=== PATIENT | female | born 1965 | race Caucasian/White ===

== ENCOUNTER → 2021-09-07 | Outpatient (CLI) | payer OTHER ==
--- NOTE | 2021-09-08 01:04 | CT ---
EXAMINATION TYPE: CT abdomen pelvis w con DATE OF EXAM: 09/07/2021 COMPARISON: CT dated 2016 HISTORY: Incisional hernia CT DLP: 2507.90 mGycm Automated exposure control for dose reduction was used. TECHNIQUE: Helical acquisition of images was performed from the lung bases through the pelvis. CONTRAST: Performed with Oral Contrast and with IV Contrast, patient injected with 100 mL of Isovue 300. FINDINGS: Large anterior abdominal wall midline hernia. The hernial sac measures 7.8 x 16.6 x 20.7 cm. The jose ial neck measures 6.9 x 5.5 cm. The hernia contains fat and demonstrates multiple compartments and se ptation. Portion of the mid transverse colon is seen protruding into the neck of the hernia. Scar tis mane is seen along the inferior aspect of the hernia in the midline. This hernia definitely progressed in size compared to the previous CT scan. No other definite anterior abdominal wall hernia identifie d. No definite hepatic focal lesion. Previous cholecystectomy. Unremarkable spleen, pancreas and adrenal s. Millimetric right renal hypodensities, too small to characterize and could represent renal cysts. 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 Grossly unremarkable urinary bladder. No gross uterine or adnexal mass. Minimal arterial atherosclerotic calcifications. Stable paraesophageal tiny lymph node. Unremarkable stomach, duodenum and small bowel. Unremarkable remainder of the colon. Normal appendix. No suspicious lymphadenopathy or sizable ascites. Apparent cardiomegaly. Stable millimetric calcifie d granuloma at the medial aspect of the right lung base. Degenerative changes of the lower thoracic a nd lumbar spine most evident at L4-5 level. Anterolisthesis of L4 over L5, likely degenerative. No ag gressive bone lesion. IMPRESSION: Large multicompartment anterior abdominal wall hernia as detailed above, for surgery consultation. Ot her incidental findings as described above.
== END | disposition home or self-care (01) ==
LOC: RADCTMAIN 12:52
PROVIDERS: ATTEND Surgery
DX: K43.2 Incisional hernia without obstruction or gangrene (principal)
CPT/HCPCS: 74177; Q9967

== ENCOUNTER → 2022-08-21 | Outpatient (CLI) | payer OTHER ==
--- NOTE | 2022-08-21 13:33 | US ---
EXAMINATION TYPE: US thyroid st tissue head/neck DATE OF EXAM: 08/21/2022 COMPARISON: NONE CLINICAL HISTORY: E03.9 HYPOTHYROIDISM. GLAND SIZE: Right Lobe: 3.5 x 1.9 x 1.5 cm Overall Parenchyma: lobular, heterogeneous Left Lobe: cm Overall Parenchyma: Isthmus Thickness: cm NODULES RIGHT: # of nodules measured on right: 1 1. 1.1 X 0.7 x 0.9 cm, mid , solid or almost completely solid, hypoechoic nodule, which is wider th an tall, with smooth margins, without echogenic foci. TR 4. Prior size: no previous imaging LEFT: # of nodules measured on left: 0 ISTHMUS: # of nodules measured in the isthmus: 1 1. 0.5 X 0.5 x 0.3 cm solid or almost completely solid, hyperechoic nodule, which is wider than summer l, with smooth margins, without echogenic foci. TR 3. Prior size: no previous imaging Bilateral neck scanned, no evidence of lymphadenopathy. IMPRESSION: 1. Right thyroid lobe TR 4-1.1 cm nodule. Follow-up ultrasound in one year is recommended. 2. Isthmus 0.5 cm TR 3 nodule. No follow-up or fine needle aspiration recommended.
== END | disposition home or self-care (01) ==
LOC: RADUSWWP 12:43
PROVIDERS: ATTEND Family Medicine
DX: E04.2 Nontoxic multinodular goiter (principal); E03.9 Hypothyroidism, unspecified
CPT/HCPCS: 76536

== ENCOUNTER → 2022-12-27 | Outpatient (CLI) | payer OTHER ==
[2022-12-27 15:36] VITALS: BP 143/75; PULSE 86; RESP 13; TEMP 98; BMI 59.0
--- NOTE | 2022-12-27 16:25 | P.HPBAR ---
Bariatric H&P - History & Physicial H&P Date: 12/27/22 History & Physicial: Visit/CC: new pt Patient initial contact: Initial weight: Initial weight in pounds: Height: 5 ft 3.5 in Initial BMI: Last weight: Current weight: 153.586 kg Current weight in pounds: 338.60 Current BMI: 59.0 [place] body weight (based on NIH guidelines): 53.297 kg Excess body weight loss: The patient is a 57 year-old F who presents for Bariatric Assessment. Plan for sleeve. Has large hernia. Needs cardiac assessment. Food and exercise journal. Nutritional assessment. Past Medical History Past Medical History: COPD, Hypertension, Thyroid Disorder History of Any Multi-Drug Resistant Organisms: None Reported Past Surgical History: Cholecystectomy, Tubal Ligation Additional Past Surgical History / Comment(s): hernia repair x 2 abdomen, Past Anesthesia/Blood Transfusion Reactions: No Reported Reaction Past Psychological History: Anxiety, Depression Smoking Status: Former smoker Past Alcohol Use History: None Reported Past Drug Use History: None Reported - Past Family History Father Family Medical History: Cancer Additional Family Medical History / Comment(s): gall bladder Mother Family Medical History: Congestive Heart Failure (CHF), COPD Surgical - Exam Vital Signs Temp Pulse Resp BP 98 F 86 13 143/75 12/27/22 15:18 12/27/22 15:18 12/27/22 15:18 12/27/22 15:18 Bariatric Checklist Checklist: Plan: Checklist: EGD: 1. Hiatal hernia: 2. H. Pylori: HgbA1c: Vitamin D: Smoking: Primary care physician referral: Psychiatry clearance: Cardiology clearance: Sleep study: Diet journal: VTE risk score: VTE risk level: Rehab needs at discharge:
== END ==
LOC: BARWHC3 14:53
PROVIDERS: ATTEND Surgery Plastic and Reconstructive Surgery
DX: E66.01 Morbid (severe) obesity due to excess calories (principal); J44.9 Chronic obstructive pulmonary disease, unspecified; I10 Essential (primary) hypertension; Z68.43 Body mass index [BMI] 50.0-59.9, adult; Z87.891 Personal history of nicotine dependence; Z88.5 Allergy status to narcotic agent
CPT/HCPCS: 99202

== ENCOUNTER → 2023-01-03 | Outpatient (CLI) | payer OTHER ==
[2023-01-03 12:54] LABS: INR 0.9 (<1.2); Partial Thromboplastin Time 24.2 sec (22.0-30.0); Prothrombin Time 10.1 sec (9.0-12.0)
[2023-01-03 15:29] LABS: Prealbumin 17.4 mg/dL (18.0-42.0)
[2023-01-03 17:01] LABS: % Iron Saturation 19.26 (12.00-45.00); ALT 18 U/L (8-44); AST 17 U/L (13-35); Albumin 4.1 d/dL (3.8-4.9); Albumin/Globulin Ratio 1.37 Ratio (1.60-3.17); Alkaline Phosphatase 138 U/L (41-126); Blood Urea Nitrogen 14.8 mg/dL (9.0-27.0); Calcium 9.6 mg/dL (8.7-10.3); Carbon Dioxide 23.2 mmol/L (21.6-31.8); Chloride 100 mmol/L (96-109); Chol/HDL Ratio 3.52 Ratio; Glucose 98 mg/dL (70-110); Iron 68 UG/DL (50-170); LDL Cholesterol,Calculated 96.6 mg/dL (0.0-131.0); Magnesium 2.1 mg/dL (1.5-2.4); Phosphorus 2.8 mg/dL (2.4-5.1); Potassium 3.9 mmol/L (3.5-5.5); Sodium 145 mmol/L (135-145); Total Bilirubin 0.2 mg/dL (0.3-1.2); Total Iron Binding Capacity 353 UG/DL (228-460); Total Protein 7.1 d/dL (6.2-8.2)
[2023-01-03 17:04] LABS: HCT 46.7 % (37.2-46.3); HGB 14.1 d/dL (12.0-15.0); MCH 31.1 pg (27.0-32.0); MCHC 30.2 d/dL (32.0-37.0); MCV 102.9 FL (80.0-97.0); Mean Platelet Volume 10.5 FL (9.5-12.2); NRBC Per 100 WBC 0 X 10*3/uL (0.00-0.01); Platelet Count 305 X 10*3/uL (140-440); RBC 4.54 X 10*6/uL (4.10-5.20); RDW 14.3 % (11.5-14.5); WBC 9.47 X 10*3/uL (4.50-10.00)
[2023-01-05 07:08] LABS: Vit B1(Thiamine) 95 ug/L (38-122)
[2023-01-08 06:28] LABS: Anabasine Urine <2.0 ng/mL (<2.0)
[2023-01-08 08:41] LABS: Vitamin A 29 ug/dL (38-106)
[2023-01-10 09:53] LABS: Zinc, Serum 66 ug/dL (60-130)
[2023-01-12 18:54] LABS: Selenium 123 mcg/L (63-160)
== END | disposition home or self-care (01) ==
LOC: LABWHC1 11:12
PROVIDERS: ATTEND Surgery Plastic and Reconstructive Surgery
DX: E66.01 Morbid (severe) obesity due to excess calories (principal); E89.1 Postprocedural hypoinsulinemia; D50.8 Other iron deficiency anemias; K91.2 Postsurgical malabsorption, not elsewhere classified; E44.0 Moderate protein-calorie malnutrition; E44.1 Mild protein-calorie malnutrition; E45 Retarded development following protein-calorie malnutrition; E46 Unspecified protein-calorie malnutrition; E55.9 Vitamin D deficiency, unspecified; K74.1 Hepatic sclerosis; N19 Unspecified kidney failure; T56.894A Toxic effect of other metals, undetermined, initial encounter; K50.90 Crohn's disease, unspecified, without complications; Z71.51 Drug abuse counseling and surveillance of drug abuser; I45.19 Other right bundle-branch block; R94.31 Abnormal electrocardiogram [ECG] [EKG]
CPT/HCPCS: 84255; 84134; 84425; 80061; 80053; 82607; 82728; 82525; 82746; 83540; 83550; 83735; 84100; 84443; 84590; 84630; 85027; 85610; 85730; 82306; 80307; 83970; 83036; 93005; G0480 ×3; 80323; 80345; 80346

== ENCOUNTER 2023-02-05 07:01 | Day surgery (SDC) | payer OTHER ==
[2023-02-01 12:53] VITALS: BMI 53.2
[~2023-02-05 07:01] MED LIST: LACTATED RINGERS 1,000 ML IV SCH; LIDOCAINE 1% (10MG/ML) FOR IV START INTRADERMA PRN
[2023-02-05 07:28] VITALS: TEMP 97.4
[2023-02-05] MEDS ORDERED: MIDAZOLAM 2 MG/2 ML VIAL ONE (08:02)
[2023-02-05] MEDS ORDERED: PROPOFOL 10 MG/ML 20 ML VIAL IV ONE (08:02)
[2023-02-05] MEDS ORDERED: KETAMINE 10 MG/ML 20 ML VIAL ONE (08:02)
[2023-02-05 08:27] VITALS: RESP 16
--- NOTE | 2023-02-05 08:36 | P.GSHP ---
History of Present Illness H&P Date: 02/05/23 CHIEF COMPLAINT: GERD HISTORY OF PRESENT ILLNESS: The patient is a 57-year-old female who presents reports gastroesophageal reflux disease. Upper endoscopy was offered for further evaluation and management. PAST MEDICAL HISTORY: Please see list. PAST SURGICAL HISTORY: Please see list. MEDICATIONS: Please see list. ALLERGIES: Please see list. SOCIAL HISTORY: No illicit drug use FAMILY HISTORY: No reports of Crohn disease or ulcerative colitis. REVIEW OF ORGAN SYSTEMS: CONSTITUTIONAL: No reports of fevers or chills. GI: Denies any blood in stools or constipation. PHYSICAL EXAM: VITAL SIGNS: Stable GENERAL: Well-developed and pleasant in no acute distress. HEENT: No scleral icterus. Extraocular movements grossly intact. Moist buccal mucosa. NECK: Supple without lymphadenopathy. CHEST: Unlabored respirations. Equal bilateral excursions. CARDIOVASCULAR: Regular rate and rhythm. Distal 2+ pulses. ABDOMEN: Soft, nondistended. MUSCULOSKELETAL: No clubbing, cyanosis, or edema. ASSESSMENT: 1. Gastroesophageal reflux disease PLAN: 1. Recommend proceeding with an upper endoscopy Past Medical History Past Medical History: COPD, Hypertension, Osteoarthritis (OA), Skin Disorder, Thyroid Disorder Additional Past Medical History / Comment(s): hernia History of Any Multi-Drug Resistant Organisms: None Reported Past Surgical History: Cholecystectomy, Tubal Ligation Additional Past Surgical History / Comment(s): hernia repair x 2 abdomen, Past Anesthesia/Blood Transfusion Reactions: No Reported Reaction Past Psychological History: Anxiety, Depression Smoking Status: Former smoker Past Alcohol Use History: None Reported Additional Past Alcohol Use History / Comment(s): quit smoking 2 yrs ago (apr 2021), hx of 1ppd, started smoking age 22 Past Drug Use History: None Reported - Past Family History Father Family Medical History: Cancer Additional Family Medical History / Comment(s): gall bladder cancer Mother Family Medical History: Congestive Heart Failure (CHF), COPD Medications and Allergies Home Medications Medication Instructions Recorded Confirmed Type Atorvastatin [Lipitor] 20 mg PO DAILY 12/27/22 02/05/23 History Cyclobenzaprine [Flexeril] 10 mg PO BID PRN 12/27/22 02/05/23 History Folic Acid 1 mg PO DAILY 12/27/22 02/05/23 History Ibuprofen [Motrin] 800 mg PO Q8H 12/27/22 02/05/23 History Levothyroxine Sodium [Synthroid] 75 mcg PO DAILY 12/27/22 02/05/23 History Verapamil HCl [Verapamil ER] 120 mg PO DAILY 12/27/22 02/05/23 History busPIRone HCL 10 mg PO DIRECTED PRN 12/27/22 02/05/23 History lisinopriL [Prinivil] 20 mg PO DAILY 12/27/22 02/05/23 History metHOTREXate sodium [Methotrexate] 12.5 mg PO MARTINEZ 12/27/22 02/05/23 History Albuterol Nebulizer 1 dose INHALATION BID 02/01/23 02/05/23 History Budesonide-Formot 160-4.5 Mcg 2 puff INHALATION BID 02/01/23 02/05/23 History [Symbicort 160-4.5 Mcg Inhaler] Cholecalciferol [Vitamin D3 (25 100 mcg PO DAILY 02/01/23 02/05/23 History Mcg = 1000 Iu)] Cyanocobalamin (Vitamin B-12) 1,000 mcg PO DAILY 02/01/23 02/05/23 History [Vitamin B-12] Sertraline [Zoloft] 200 mg PO DAILY 02/01/23 02/05/23 History Allergies Allergy/AdvReac Type Severity Reaction Status Date / Time hydromorphone [From Dilaudid] Allergy Vomiting Verified 02/05/23 07:28 Surgical - Exam Vital Signs Temp Pulse Resp BP Pulse Ox 97.4 F L 96 20 220/106 96 02/05/23 07:26 02/05/23 07:26 02/05/23 07:26 02/05/23 07:26 02/05/23 07:26
--- NOTE | 2023-02-05 08:38 | P.PCN ---
Date of Procedure: 02/05/23 Description of Procedure: PREOPERATIVE DIAGNOSIS: Gastroesophageal reflux disease. Morbid obesity. POSTOPERATIVE DIAGNOSIS: Gastroesophageal reflux disease. Morbid obesity. Gastritis. Duodenitis OPERATION: Esophagogastroduodenoscopy with biopsies along antrum and duodenum SURGEON: Bren Hawthorne MD ANESTHESIA: MAC. INDICATIONS: The patient is a 57-year-old female who presents with reflux disease. Benefits and risks of the procedure were described. Informed consent was obtained. DESCRIPTION: The patient was brought into the endoscopy suite and laid in the left lateral decubitus position. An Olympus gastroscope was passed along the posterior oropharynx down to the distal esophagus where the squamocolumnar junction was encountered at 40 cm from the incisors. The stomach was entered and no bile reflux was found. Additional findings are listed below. Biopsies with cold forceps were obtained of the antrum. The first through third portion of the duodenum was examined. Retroflexion of the scope confirmed Hill grade 3 lower esophageal valve. The squamocolumnar junction demonstrated LA grade B erosive esophagitis. The stomach was desufflated. The patient tolerated the procedure well. FINDINGS: Squamocolumnar junction 40 cm from the incisors. Diaphragmatic hiatus at 40 cm. Hill grade 4 lower esophageal valve. LA grade B erosive esophagitis. Biopsies obtained of the duodenum. Chronic gastritis with biopsies obtained. Duodenitis identified. RECOMMENDATIONS: Upper endoscopy as needed. Plan - Discharge Summary New Discharge Prescriptions: Continue Cyclobenzaprine [Flexeril] 10 mg PO BID PRN PRN Reason: Pain busPIRone HCL 10 mg PO DIRECTED PRN PRN Reason: Anxiety lisinopriL [Prinivil] 20 mg PO DAILY Verapamil HCl [Verapamil ER] 120 mg PO DAILY Folic Acid 1 mg PO DAILY Sertraline [Zoloft] 200 mg PO DAILY Cholecalciferol [Vitamin D3 (25 Mcg = 1000 Iu)] 100 mcg PO DAILY Albuterol Nebulizer 1 dose INHALATION BID Levothyroxine Sodium [Synthroid] 75 mcg PO DAILY metHOTREXate sodium [Methotrexate] 12.5 mg PO MARTINEZ Ibuprofen [Motrin] 800 mg PO Q8H Atorvastatin [Lipitor] 20 mg PO DAILY Budesonide-Formot 160-4.5 Mcg [Symbicort 160-4.5 Mcg Inhaler] 2 puff INHALATION BID Cyanocobalamin (Vitamin B-12) [Vitamin B-12] 1,000 mcg PO DAILY Discharge Medication List Atorvastatin [Lipitor] 20 mg PO DAILY 12/27/22 [History] Cyclobenzaprine [Flexeril] 10 mg PO BID PRN 12/27/22 [History] Folic Acid 1 mg PO DAILY 12/27/22 [History] Ibuprofen [Motrin] 800 mg PO Q8H 12/27/22 [History] Levothyroxine Sodium [Synthroid] 75 mcg PO DAILY 12/27/22 [History] Verapamil HCl [Verapamil ER] 120 mg PO DAILY 12/27/22 [History] busPIRone HCL 10 mg PO DIRECTED PRN 12/27/22 [History] lisinopriL [Prinivil] 20 mg PO DAILY 12/27/22 [History] metHOTREXate sodium [Methotrexate] 12.5 mg PO MARTINEZ 12/27/22 [History] Albuterol Nebulizer 1 dose INHALATION BID 02/01/23 [History] Budesonide-Formot 160-4.5 Mcg [Symbicort 160-4.5 Mcg Inhaler] 2 puff INHALATION BID 02/01/23 [History] Cholecalciferol [Vitamin D3 (25 Mcg = 1000 Iu)] 100 mcg PO DAILY 02/01/23 [History] Cyanocobalamin (Vitamin B-12) [Vitamin B-12] 1,000 mcg PO DAILY 02/01/23 [History] Sertraline [Zoloft] 200 mg PO DAILY 02/01/23 [History] [place] [facility]Ref[place] [facility] [place] [place] [facility] [place] [facility]23 Patient Instructions/Handouts: Gastritis (DC) Discharge Disposition: HOME SELF-CARE
[2023-02-05 08:48] VITALS: BP 158/88; PULSE 72
== END 2023-02-05 09:03 | disposition home or self-care (01) ==
LOC: ORWHC2ENDO 07:01
PROVIDERS: ATTEND Surgery Plastic and Reconstructive Surgery
DX: K29.90 Gastroduodenitis, unspecified, without bleeding (principal); K21.00 Gastro-esophageal reflux disease with esophagitis, without bleeding; K44.9 Diaphragmatic hernia without obstruction or gangrene; J44.9 Chronic obstructive pulmonary disease, unspecified; I10 Essential (primary) hypertension; M19.90 Unspecified osteoarthritis, unspecified site; E07.9 Disorder of thyroid, unspecified; Z90.49 Acquired absence of other specified parts of digestive tract; F41.9 Anxiety disorder, unspecified; E66.01 Morbid (severe) obesity due to excess calories; Z68.43 Body mass index [BMI] 50.0-59.9, adult; F32.A Depression, unspecified; Z87.891 Personal history of nicotine dependence; Z79.890 Hormone replacement therapy; Z79.899 Other long term (current) drug therapy; Z79.51 Long term (current) use of inhaled steroids; Z88.5 Allergy status to narcotic agent
CPT/HCPCS: 88305; 43239; J2250; J2704

== ENCOUNTER → 2023-03-07 | Outpatient (CLI) | payer OTHER ==
[2023-03-07 13:29] VITALS: BP 179/94; PULSE 102; TEMP 98.2; BMI 58.9
--- NOTE | 2023-03-07 14:21 | P.BASOAP ---
Subjective Progress Note Date: 03/07/23 She avoids salt. Options for protein. Blod work support need for more protein. She only eats chicken but note needs more protein. EKG reviewed. Labs reviewed. Objective - Vital Signs Vital signs: Vital Signs Temp 98.2 F 03/07/23 13:24 Pulse 102 H 03/07/23 13:24 Resp BP 179/94 03/07/23 13:24 Pulse Ox FiO2 Intake & Output 03/06/23 03/07/23 03/07/23 18:59 06:59 18:59 Weight 153.314 kg Assessment/Plan Plan: Date: 03/07/23 Initial Weight: Initial BMI: Current Weight: 153.314 kg Current BMI: 58.9 Type of Surgery: Total Volume in Band: Previous Volume: Volume Removed: Volume Added: Band Size:
== END ==
LOC: BARWHC3 13:18
PROVIDERS: ATTEND Surgery Plastic and Reconstructive Surgery
DX: Z53.9 Procedure and treatment not carried out, unspecified reason (principal)
CPT/HCPCS: 99211

== ENCOUNTER → 2023-04-09 | Outpatient (CLI) | payer OTHER ==
[2023-04-09 09:32] VITALS: BMI 59.7
== END ==
LOC: BARWHC3 08:42
PROVIDERS: ATTEND Surgery Plastic and Reconstructive Surgery
DX: E66.01 Morbid (severe) obesity due to excess calories (principal); Z68.43 Body mass index [BMI] 50.0-59.9, adult; Z88.5 Allergy status to narcotic agent; Z71.3 Dietary counseling and surveillance
CPT/HCPCS: 97804

== ENCOUNTER → 2023-05-30 | Outpatient (CLI) | payer OTHER ==
[~2023-05-30] MED LIST changes: +DOBUTamine DRIP for NUC MED 500 MG in DEXTROSE/WATER 1 250ML.BAG IV PRN; -LACTATED RINGERS 1,000 ML IV SCH; -LIDOCAINE 1% (10MG/ML) FOR IV START INTRADERMA PRN
--- NOTE | 2023-05-30 12:04 | CA ---
Dobutamine Stress Echocardiogram Report Amelia Bonilla Age: 58 Gender: F : 1965 Exam Date: 05/30/2023 10:38 Exam Location: [place] Stress Ordering Physician: Don Whitehead MD ([id number]) Referring Physician: Don Whitehead MD ([id number]) Audio Visual Facilities Engineer: Fatemeh ESPINAL Technologist: Ht (in): 66 Wt (lb): 340 Procedure CPT: Indication: Z01.818 PREPROCEDURAL EXAMINATION ICD-9 Codes: Rhythm: Patient History: Cardiac Medications: Medications in past 24 hours: Contrast: Definity Total Dose (mL): 10 Stress Results Protocol: Dobutamine Peak Dose (???g/kg/min): 40 Duration (min:sec): Atropine:(mg) Target HR: 139 Double Product: [id number] Resting HR: 82 Resting BP: 122 / 80 Peak HR: 134 Peak BP: 247 / 35 Max Predicted HR: 164 82 % Max Predicted HR Stress Summary: BP Response: Reason for Termination: Exceeded target heart rate (85% max predicted) Cardiac Symptoms: Test terminated after reaching target heart rate (85% max predicted) ECG Analysis Resting EKG: Normal sinus rhythm, normal ECG Stress EKG: No abnormal ST/T wave changes with dobutamine infusion Arrhythmia: None Echo Analysis Base Echo Analysis: Normal resting echocardiogram. Low Echo Anaylsis: Normal wall thickening and motion Peak Echo Analysis: Normal wall motion augmentation with no hypokinesis or dyskinesis Recovery Echo: Normal wall motion MEASUREMENTS (Male/Female) Normal Values CONCLUSIONS 1. Normal electrocardiographic response to dobutamine infusion 2. Normal stress echocardiogram with no evidence of stress induced ischemia Dr. Mark Leon MD (Electronically Signed) Final Date: 30 May 2023 12:03
== END | disposition home or self-care (01) ==
LOC: RADNMMAIN 09:45
PROVIDERS: ATTEND Internal Medicine Clinical Cardiac Electrophysiology
DX: Z01.818 Encounter for other preprocedural examination (principal)
CPT/HCPCS: C8930; Q9957; 93351

== ENCOUNTER → 2023-06-27 | Outpatient (CLI) | payer OTHER ==
[2023-06-27 16:38] VITALS: BP 149/89; PULSE 87; TEMP 97.7; BMI 58.8
--- NOTE | 2023-06-27 17:06 | P.BASOAP ---
Subjective Progress Note Date: 06/27/23 DATE OF SERVICE: 06/27/23 CHIEF COMPLAINT: Morbid obesity due to excess calories HISTORY OF PRESENT ILLNESS: Amelia Bonilla is a 58-year-old female who comes with lifelong morbid obesity. She comes in looking into the sleeve gastrectomy. She has pre-existing history of large ventral hernia. She comes in morbidly obese. She has had multiple abdominal wall surgeries with mesh all of whom have failed. She has completed cardiac risk assessment, medical risks assessment and dietary surveillance and counseling. She presents for surgical intervention. At height of 5 feet 3.5 inches, her ideal body weight is 140 pounds. She comes in 338 pounds. Her body mass index is 58.9. Her highest weight is 340 pounds, BMI 59.5. She is 198 pounds overweight. PAST MEDICAL HISTORY: 1. Morbid obesity due to excess calories 2. Body mass index of 59.5 3. Osteoarthritis of the knees. 4. Osteoarthritis of the lower back. 5. Hypertensive heart disease. 6. Gastroesophageal reflux disease 7. Hyperlipidemia 8. Obstructive sleep apnea 9. Hypothyroidism. 10. Rheumatoid arthritis 11. Depressive disorder. 12. Chronic obstructive pulmonary disease. 13. Anxiety disorder 14. Depressive disorder PAST SURGICAL HISTORY: 1. Multiple abdominal wall hernias 2. EGD 3. Cholecystectomy 4. Tubal ligation HOME MEDICATIONS: Home Medications Medication Instructions Recorded Confirmed Atorvastatin [Lipitor] 20 mg PO QAM 12/27/22 06/27/23 Cyclobenzaprine [Flexeril] 10 mg PO BID PRN 12/27/22 06/27/23 Ibuprofen [Motrin] 800 mg PO Q8H PRN 12/27/22 06/27/23 Levothyroxine Sodium [Synthroid] 75 mcg PO QAM 12/27/22 06/27/23 busPIRone HCL 10 mg PO DIRECTED PRN 12/27/22 06/27/23 lisinopriL [Prinivil] 20 mg PO QAM 12/27/22 06/27/23 metHOTREXate sodium 12.5 mg PO MARTINEZ 12/27/22 06/27/23 Budesonide-Formot 160-4.5 Mcg 2 puff INHALATION BID 02/01/23 06/27/23 [Symbicort 160-4.5 Mcg Inhaler] Sertraline [Zoloft] 200 mg PO QAM 02/01/23 06/27/23 Verapamil HCl [Verapamil ER] 180 mg PO QAM 06/27/23 06/27/23 ALLERGIES: Allergies Allergy/AdvReac Type Severity Reaction Status Date / Time hydromorphone [From Dilaudid] Allergy Vomiting Verified 06/27/23 14:20 SOCIAL HISTORY: Past tobacco use. FAMILY HISTORY: No family history of ulcerative colitis disease or Crohn's disease. Family history of morbid obesity. No lupus in the family. No reports of stomach or esophageal cancer. REVIEW OF ORGAN SYSTEMS: CONSTITUTIONAL: At height of 5 feet 3.5 inches, her ideal body weight is 140 pounds. She comes in 338 pounds. Her body mass index is 58.9. Her highest weight is 340 pounds, BMI 59.5. She is 198 pounds overweight. HEENT: Denies any active troubles with vision or hearing. ENDOCRINE: Denies diabetes. No hypothyroidism. CARDIOVASCULAR: Denies reports of palpitations or heart attacks or chest pain. Has hypertensive heart disease. RESPIRATORY: Has daytime somnolence. Has asthma. Has chronic obstructive pulmonary disease. GASTROINTESTINAL: Denies any bright red blood per rectum. No diarrhea. No constipation. Has gastroesophageal reflux disease. GENITOURINARY:Denies bladder urgency. No recent blood in urine MUSCULOSKELETAL: Has lower back pain and joint pain. Has osteoarthritis of the knees. NEURO: No headaches. No seizure disorders. Has neuropathy. PSYCH: Has depression. No suicidal ideation. RHEUMATOLOGIC: No lupus. No rheumatoid arthritis. HEMATOLOGIC: Denies any abnormal bleeding or bruising. SKIN: No rash. No skin cancer. Multiple abdominal hernia PHYSICAL EXAM: VITAL SIGNS: Height 5 foot 3.5 inches, weight 338 pounds. BMI 58.9 Vital Signs Temp 97.7 F 06/27/23 16:19 Pulse 87 06/27/23 16:19 Resp BP 149/89 06/27/23 16:19 Pulse Ox FiO2 GENERAL: Well-developed in no acute distress. HEENT: No scleral icterus. Extraocular movements grossly intact. Hears conversational speech. No nasal drainage. NECK: Supple without lymphadenopathy. CHEST: Nonlabored respirations with equal bilateral excursions. CARDIOVASCULAR: Regular rate and regular rhythm. Distal 2+ pulses. ABDOMEN: Obese, soft, nontender, nondistended. Large pannus with multiple abdominal wall hernias MUSCULOSKELETAL: No clubbing, cyanosis. Gross strength 5/5 distal lower ex tremities. NEURO: No focal or lateralizing signs. Cranial nerves 2 through 12 grossly within normal limits. PSYCH: Appropriate affect. Alert and oriented to person, place and time. SKIN: Good skin turgor. Well perfused. EKG: Abnormal with ST and T-wave abnormality LABS: Vitamin A low. Elevated barbital level on urine drug screen. EGD FINDINGS: Squamocolumnar junction 40 cm from the incisors. Diaphragmatic hiatus at 40 cm. Hill grade 4 lower esophageal valve. LA grade B erosive esophagitis. Biopsies obtained of the duodenum. Chronic gastritis with biopsies obtained. Duodenitis identified. REPORTS: Manager Floral report demonstrated acceptable surgical risk. Final Pathologic Diagnosis A. DUODENUM, BIOPSY: Benign small bowel mucosa with superficial congestion and focal erosion. Negative for histologic features of Celiac disease. B. STOMACH, ANTRUM, BIOPSY: Reactive gastropathy with congestion and minimal inflammation. No Helicobacter organisms seen on H+E staining. ASSESSMENT: 1. Morbid obesity due to excess calories 2. Body mass index of 59.5 3. Osteoarthritis of the knees. 4. Osteoarthritis of the lower back. 5. Hypertensive heart disease. 6. Gastroesophageal reflux disease 7. Hyperlipidemia 8. Obstructive sleep apnea 9. Hypothyroidism. 10. Rheumatoid arthritis 11. Depressive disorder. 12. Chronic obstructive pulmonary disease. 13. Anxiety disorder 14. Depressive disorder 15. Recurrent incisional hernia 16. Vitamin A deficiency PLAN: 1. Bariatric options between a sleeve, band and a Yared-en-Y gastric bypass were reviewed in detail. The patient elected for a sleeve gastrectomy. Robotic assisted approach described. 2. The [place] [facility] Data was also reviewed with benefits and risks performed. 3. An 8 page second-generation bariatric consent form was reviewed in detail including potential of bleeding, infection, leaks, adequate weight loss, nutritional deficiencies which the patient demonstrated understanding of the risks. 4. A 2 week high-protein low caloric 800 kcal diet described to address hepatomegaly. 5. Preoperative labs including complete metabolic panel and CBC with type and screen recommended. 6. DVT prophylaxis per [place] [facility]. 7. Antibiotic prophylaxis. 8. Inpatient hospitalization anticipated for more than 2 nights. 9. All questions and concerns were addressed with the patient. 10. The patient is at elevated risk for perioperative complications with sleep apnea and hypertensive heart disease. 11. Overall, patient has expressed understanding of bariatric care including postoperative diet and commitment of lifestyle. Patient should benefit from surgical intervention for correction of morbid obesity. 12. She is elevated risk due to pre-existing comorbid conditions 13. She has large ventral hernia. May benefit from abdominal wall reconstruction following weight. Objective - Vital Signs Vital signs: Vital Signs Temp 97.7 F 06/27/23 16:19 Pulse 87 06/27/23 16:19 Resp BP 149/89 06/27/23 16:19 Pulse Ox FiO2 Intake & Output 06/26/23 06/27/23 06/27/23 18:59 06:59 18:59 Weight 153.178 kg Assessment/Plan Plan: Date: 06/27/23 Initial Weight: Initial BMI: Current Weight: 153.178 kg Current BMI: 58.8 Type of Surgery: Total Volume in Band: Previous Volume: Volume Removed: Volume Added: Band Size:
== END ==
LOC: BARWHC3 15:35
PROVIDERS: ATTEND Surgery Plastic and Reconstructive Surgery
DX: E66.01 Morbid (severe) obesity due to excess calories (principal); M17.0 Bilateral primary osteoarthritis of knee; M47.816 Spondylosis without myelopathy or radiculopathy, lumbar region; I11.0 Hypertensive heart disease with heart failure; K21.9 Gastro-esophageal reflux disease without esophagitis; E78.5 Hyperlipidemia, unspecified; G47.33 Obstructive sleep apnea (adult) (pediatric); E03.9 Hypothyroidism, unspecified; M06.9 Rheumatoid arthritis, unspecified; F32.A Depression, unspecified; J44.9 Chronic obstructive pulmonary disease, unspecified; A41.9 Sepsis, unspecified organism; Z68.43 Body mass index [BMI] 50.0-59.9, adult; Z88.5 Allergy status to narcotic agent; Z79.899 Other long term (current) drug therapy; Z79.890 Hormone replacement therapy
CPT/HCPCS: 99211

== ENCOUNTER → 2023-06-28 | Outpatient (CLI) | payer OTHER ==
[2023-06-28 15:39] LABS: Basophils # (A) 0.03 X 10*3/uL (0.00-0.10); Basophils % (A) 0.4 %; Eosinophils # (A) 0.05 X 10*3/uL (0.04-0.35); Eosinophils % (A) 0.7 %; HCT 45.5 % (37.2-46.3); HGB 14.5 g/dL (12.0-15.0); Lymphocytes # (A) 2.61 X 10*3/uL (0.90-5.00); MCH 31.7 pg (27.0-32.0); MCHC 31.9 g/dL (32.0-37.0); MCV 99.3 FL (80.0-97.0); Mean Platelet Volume 10.3 FL (9.5-12.2); Monocytes # (A) 0.42 X 10*3/uL (0.20-1.00); Monocytes % (A) 5.8 %; NRBC Per 100 WBC 0 X 10*3/uL (0.00-0.01); Neutrophils # (A) 4.12 X 10*3/uL (1.80-7.70); Neutrophils % (A) 56.8 %; Platelet Count 273 X 10*3/uL (140-440); RBC 4.58 X 10*6/uL (4.10-5.20); RDW 14.1 % (11.5-14.5); WBC 7.25 X 10*3/uL (4.50-10.00)
[2023-06-28 16:06] LABS: ALT 24 U/L (8-44); AST 20 U/L (13-35); Albumin 4.2 g/dL (3.8-4.9); Albumin/Globulin Ratio 1.45 Ratio (1.60-3.17); Alkaline Phosphatase 110 U/L (41-126); BUN/Creat Ratio 16.12 Ratio (12.00-20.00); Blood Urea Nitrogen 12.9 mg/dL (9.0-27.0); Calcium 9.5 mg/dL (8.7-10.3); Carbon Dioxide 25.3 mmol/L (21.6-31.8); Chloride 107 mmol/L (96-109); Globulin 2.9 g/dL (1.6-3.3); Glucose 88 mg/dL (70-110); Potassium 4.2 mmol/L (3.5-5.5); Sodium 143 mmol/L (135-145); Total Bilirubin 0.3 mg/dL (0.3-1.2); Total Protein 7.1 g/dL (6.2-8.2)
== END | disposition home or self-care (01) ==
LOC: LABPAT 09:23
PROVIDERS: ATTEND Surgery Plastic and Reconstructive Surgery
DX: Z01.812 Encounter for preprocedural laboratory examination (principal)
CPT/HCPCS: 36415; 80053; 85025; 86850; 86900; 86901

== ENCOUNTER 2023-07-02 09:10 | Inpatient (IN) | payer OTHER ==
--- NOTE | 2023-07-02 08:06 | P.GSHP ---
History of Present Illness H&P Date: 07/02/23 CHIEF COMPLAINT: Morbid obesity due to excess calories HISTORY OF PRESENT ILLNESS: Amelia Bonilla is a 58-year-old female who comes with lifelong morbid obesity. She comes in looking into the sleeve gastrectomy. She has completed cardiac risk assessment, medical risks assessment and dietary surveillance and counseling. She presents for surgical intervention. At height of 5 feet 3.5 inches, her ideal body weight is 140 pounds. She comes in 338 pounds. Her body mass index is 58.9. Her highest weight is 342 pounds, BMI 59.8. She is 198 pounds overweight. PAST MEDICAL HISTORY: 1. Morbid obesity due to excess calories 2. Body mass index of 59.8 3. Osteoarthritis of the knees. 4. Osteoarthritis of the lower back. 5. Hypertensive heart disease. 6. Gastroesophageal reflux disease 7. Hyperlipidemia 8. Obstructive sleep apnea 9. Hypothyroidism. 10. Rheumatoid arthritis 11. Depressive disorder. 12. Chronic obstructive pulmonary disease. 13. Anxiety disorder 14. Depressive disorder PAST SURGICAL HISTORY: 1. Multiple abdominal wall hernias 2. EGD 3. Cholecystectomy 4. Tubal ligation HOME MEDICATIONS: Home Medications Medication Instructions Recorded Confirmed Atorvastatin [Lipitor] 20 mg PO QAM 12/27/22 06/27/23 Cyclobenzaprine [Flexeril] 10 mg PO BID PRN 12/27/22 06/27/23 Ibuprofen [Motrin] 800 mg PO Q8H PRN 12/27/22 06/27/23 Levothyroxine Sodium [Synthroid] 75 mcg PO QAM 12/27/22 06/27/23 busPIRone HCL 10 mg PO DIRECTED PRN 12/27/22 06/27/23 lisinopriL [Prinivil] 20 mg PO QAM 12/27/22 06/27/23 metHOTREXate sodium 12.5 mg PO MARTINEZ 12/27/22 06/27/23 Budesonide-Formot 160-4.5 Mcg 2 puff INHALATION BID 02/01/23 06/27/23 [Symbicort 160-4.5 Mcg Inhaler] Sertraline [Zoloft] 200 mg PO QAM 02/01/23 06/27/23 Verapamil HCl [Verapamil ER] 180 mg PO QAM 06/27/23 06/27/23 ALLERGIES: Allergies Allergy/AdvReac Type Severity Reaction Status Date / Time hydromorphone [From Dilaudid] Allergy Vomiting Verified 06/27/23 14:20 SOCIAL HISTORY: Past tobacco use. FAMILY HISTORY: No family history of ulcerative colitis disease or Crohn's disease. Family history of morbid obesity. No lupus in the family. No reports of stomach or esophageal cancer. REVIEW OF ORGAN SYSTEMS: CONSTITUTIONAL: At height of 5 feet 3.5 inches, her ideal body weight is 140 pounds. She comes in 338 pounds. Her body mass index is 58.9. Her highest weight is 340 pounds, BMI 59.5. She is 198 pounds overweight. HEENT: Denies any active troubles with vision or hearing. ENDOCRINE: Denies diabetes. No hypothyroidism. CARDIOVASCULAR: Denies reports of palpitations or heart attacks or chest pain. Has hypertensive heart disease. RESPIRATORY: Has daytime somnolence. Has asthma. Has chronic obstructive pulmonary disease. GASTROINTESTINAL: Denies any bright red blood per rectum. No diarrhea. No constipation. Has gastroesophageal reflux disease. GENITOURINARY:Denies bladder urgency. No recent blood in urine MUSCULOSKELETAL: Has lower back pain and joint pain. Has osteoarthritis of the knees. NEURO: No headaches. No seizure disorders. Has neuropathy. PSYCH: Has depression. No suicidal ideation. RHEUMATOLOGIC: No lupus. No rheumatoid arthritis. HEMATOLOGIC: Denies any abnormal bleeding or bruising. SKIN: No rash. No skin cancer. Multiple abdominal hernia PHYSICAL EXAM: VITAL SIGNS: Height 5 foot 3.5 inches, weight 338 pounds. BMI 58.9 GENERAL: Well-developed in no acute distress. HEENT: No scleral icterus. Extraocular movements grossly intact. Hears conversational speech. No nasal drainage. NECK: Supple without lymphadenopathy. CHEST: Nonlabored respirations with equal bilateral excursions. CARDIOVASCULAR: Regular rate and regular rhythm. Distal 2+ pulses. ABDOMEN: Obese, soft, nontender, nondistended. Large pannus with multiple abdominal wall hernias MUSCULOSKELETAL: No clubbing, cyanosis. Gross strength 5/5 distal lower extremities. NEURO: No focal or lateralizing signs. Cranial nerves 2 through 12 grossly within normal limits. PSYCH: Appropriate affect. Alert and oriented to person, place and time. SKIN: Good skin turgor. Well perfused. ASSESSMENT: 1. Morbid obesity due to excess calories 2. Body mass index of 59.5 3. Osteoarthritis of the knees. 4. Osteoarthritis of the lower back. 5. Hypertensive heart disease. 6. Gastroesophageal reflux disease 7. Hyperlipidemia 8. Obstructive sleep apnea 9. Hypothyroidism. 10. Rheumatoid arthritis 11. Depressive disorder. 12. Chronic obstructive pulmonary disease. 13. Anxiety disorder 14. Depressive disorder 15. Recurrent incisional hernia 16. Vitamin A deficiency PLAN: 1. Bariatric options between a sleeve, band and a Yared-en-Y gastric bypass were reviewed in detail. The patient elected for a sleeve gastrectomy. Robotic assisted approach described. 2. The [place] [facility] Data was also reviewed with benefits and risks performed. 3. An 8 page second-generation bariatric consent form was reviewed in detail including potential of bleeding, infection, leaks, adequate weight loss, nutritional deficiencies which the patient demonstrated understanding of the risks. 4. A 2 week high-protein low caloric 800 kcal diet described to address hepatomegaly. 5. Preoperative labs including complete metabolic panel and CBC with type and screen recommended. 6. DVT prophylaxis per [place] [facility]. 7. Antibiotic prophylaxis. 8. Inpatient hospitalization anticipated for more than 2 nights. 9. All questions and concerns were addressed with the patient. 10. The patient is at elevated risk for perioperative complications with sleep apnea and hypertensive heart disease. 11. Overall, patient has expressed understanding of bariatric care including postoperative diet and commitment of lifestyle. Patient should benefit from surgical intervention for correction of morbid obesity. 12. She is elevated risk due to pre-existing comorbid conditions 13. She has large ventral hernia. May benefit from abdominal wall reconstruction following weight. 14. Patient made aware that inadequate presurgical weight loss less than 10 pounds will require cancellation of her procedure Past Medical History Past Medical History: Atrial Fibrillation, COPD, Hyperlipidemia, Hypertension, Osteoarthritis (OA), Skin Disorder, Thyroid Disorder Additional Past Medical History / Comment(s): Hernia. Name of skin disorder unknown. History of Any Multi-Drug Resistant Organisms: None Reported Past Surgical History: Cholecystectomy, Hernia Repair, Tubal Ligation Additional Past Surgical History / Comment(s): Adbominal hernia repair X2. Past Anesthesia/Blood Transfusion Reactions: No Reported Reaction Past Psychological History: Anxiety, Depression Smoking Status: Former smoker Past Alcohol Use History: None Reported Additional Past Alcohol Use History / Comment(s): Quit smoking Apr 2021, smoked 1ppd, started at age 22. Past Drug Use History: None Reported - Past Family History Father Family Medical History: Cancer Additional Family Medical History / Comment(s): Gallbladder cancer. Mother Family Medical History: Congestive Heart Failure (CHF), COPD Sister(s) Family Medical History: Deep Vein Thrombosis (DVT) Medications and Allergies Home Medications Medication Instructions Recorded Confirmed Type Atorvastatin [Lipitor] 20 mg PO QAM 12/27/22 06/27/23 History Cyclobenzaprine [Flexeril] 10 mg PO BID PRN 12/27/22 06/27/23 History Ibuprofen [Motrin] 800 mg PO Q8H PRN 12/27/22 06/27/23 History Levothyroxine Sodium [Synthroid] 75 mcg PO QAM 12/27/22 06/27/23 History busPIRone HCL 10 mg PO DIRECTED PRN 12/27/22 06/27/23 History lisinopriL [Prinivil] 20 mg PO QAM 12/27/22 06/27/23 History metHOTREXate sodium 12.5 mg PO MARTINEZ 12/27/22 06/27/23 History Budesonide-Formot 160-4.5 Mcg 2 puff INHALATION BID 02/01/23 06/27/23 History [Symbicort 160-4.5 Mcg Inhaler] Sertraline [Zoloft] 200 mg PO QAM 02/01/23 06/27/23 History Verapamil HCl [Verapamil ER] 180 mg PO QAM 06/27/23 06/27/23 History Allergies Allergy/AdvReac Type Severity Reaction Status Date / Time hydromorphone [From Dilaudid] Allergy Vomiting Verified 06/27/23 14:20
[~2023-07-02 09:10] MED LIST changes: +ACETAMINOPHEN TAB 500 MG TAB PO PRN; +ALVIMOPAN 12 MG CAPSULE PO PRN; -DOBUTamine DRIP for NUC MED 500 MG in DEXTROSE/WATER 1 250ML.BAG IV PRN; +ENOXAPARIN 40 MG/0.4 ML SYRINGE SQ PRN; +ONDANSETRON 4 MG/2 ML VIAL IVP PRN; +ceFAZolin 3 GM in SODIUM CHLORIDE 0.9% 100 ML IVPB PRN
[2023-07-02] MEDS ORDERED: LIDOCAINE 1% (10MG/ML) FOR IV START INTRADERMA PRN (09:18)
[2023-07-02] MEDS ORDERED: SCOPOLAMINE 1 MG/72 HR PATCH TRANSDERM ONE (09:18)
[2023-07-02] MEDS ORDERED: DEXAMETHASONE SOD PHOSPHATE 4 MG/ML 1 ML VIAL IV ONE (09:18)
[2023-07-02] MEDS ORDERED: ONDANSETRON 4 MG/2 ML VIAL IVP ONE (09:18)
[2023-07-02] MEDS ORDERED: fentaNYL (PF) 50 MCG/ML 2 ML AMP IV PRN (09:18)
[2023-07-02] MEDS: LACTATED RINGERS 1,000 ML IV SCH (10:13)
[2023-07-02] MEDS ORDERED: diphenhydrAMINE 50 MG/ML 1 ML VIAL IVP ONE (11:11)
[2023-07-02] MEDS ORDERED: LIDOCAINE 1%-EPI 1:100,000 50 ML VIAL SQ ONE (12:30)
[2023-07-02] MEDS ORDERED: LACTATED RINGERS 1,000 ML IV ONE (12:43)
[2023-07-02] MEDS ORDERED: NALOXONE 0.4 MG/ML 1 ML VIAL IV PRN (13:09)
[2023-07-02] MEDS ORDERED: CYCLOBENZAPRINE 10 MG TAB PO PRN (13:12)
[2023-07-02] MEDS ORDERED: diphenhydrAMINE 50 MG/ML 1 ML VIAL IVP PRN (13:13)
[2023-07-02] MEDS ORDERED: fentaNYL PCA 500 MCG/50 ML BAG IV SCH (13:15)
[2023-07-02] MEDS ORDERED: SODIUM CHLORIDE 0.9% 2,000 ML IV ONE (13:20)
--- NOTE | 2023-07-02 13:37 | P.OP ---
Date of Procedure: 07/02/23 Description of Procedure: SURGEON: SOCRATES REIS MD PREOPERATIVE DIAGNOSES: 1. Morbid obesity due to excess calories 2. Body mass index of 59.5 3. Osteoarthritis of the knees. 4. Osteoarthritis of the lower back. 5. Hypertensive heart disease. 6. Gastroesophageal reflux disease 7. Hyperlipidemia 8. Obstructive sleep apnea 9. Hypothyroidism. 10. Rheumatoid arthritis 11. Depressive disorder. 12. Chronic obstructive pulmonary disease. 13. Anxiety disorder 14. Depressive disorder 15. Recurrent incisional hernia 16. Vitamin A deficiency POSTOPERATIVE DIAGNOSES: 1. Morbid obesity due to excess calories 2. Body mass index of 59.5 3. Osteoarthritis of the knees. 4. Osteoarthritis of the lower back. 5. Hypertensive heart disease. 6. Gastroesophageal reflux disease 7. Hyperlipidemia 8. Obstructive sleep apnea 9. Hypothyroidism. 10. Rheumatoid arthritis 11. Depressive disorder. 12. Chronic obstructive pulmonary disease. 13. Anxiety disorder 14. Depressive disorder 15. Recurrent incisional hernia 16. Vitamin A deficiency OPERATION: 1. Robotic assisted daVinci Xi laparoscopic sleeve gastrectomy with 40-Thai bougie, multiport. 2. Intraoperative esophagogastroduodenoscopy. ANESTHESIA: Gen. local anesthetic ESTIMATED BLOOD LOSS: 5 mL SPECIMENS REMOVED: Sleeve gastrectomy COMPLICATIONS: None. FINDINGS: 1. Negative intraoperative esophagogastrojejunoscopy leak test. 2. No hepatomegaly and no large hiatus hernia. 3. Total of 6 staplers used including 5 - 60 mm blue robot gisela and 1 - 60 mm green robot loads used to create the gastric sleeve. 4. Sleeve gastrectomy, 27 x 6 cm INDICATIONS: Amelia Bonilla is a 58-year-old female who comes with lifelong morbid obesity. She comes in looking into the sleeve gastrectomy. She has completed cardiac risk assessment, medical risks assessment and dietary surveillance and counseling. She presents for surgical intervention. At height of 5 feet 3.5 inches, her ideal body weight is 140 pounds. She comes in 338 pounds. Her body mass index is 58.9. Her highest weight is 342 pounds, BMI 59.8. She is 198 pounds overweight. All surgical options for morbid obesity had been described using the [place] [facility] comorbidity resolution including complication risk score. A second-generation bariatric consent form was described in detail including the possibility of protein malnutrition, leaks, gastric stricture, venous thrombosis, gastroesophageal reflux disease, need for further surgery for which she demonstrated understanding. Benefits and risks of the procedure were described at length. Informed consent was obtained. DESCRIPTION: The patient was brought into the operating room theater. Preoperatively she had received Lovenox subcutaneously for DVT prophylaxis. Additionally she had Peridex oral solution as an oral decontaminant. After general induction, the abdomen was prepped and draped in standard sterile fashion. An Ioban draping was placed along the abdomen. A robotic da Paulie Xi system was prepped and primed. At 15 cm from the xiphoid, proposed port sites were marked with indelible marker along the anterior axillary line bilaterally, mid axillary line bilaterally with each ports were marked 10 to 15 cm from each other. The robotic stapler port was marked for the right midclavicular line. A 5 mm 0 degrees laparoscopic trocar entry was performed along the left upper quadrant. The abdomen was insufflated to 15 mmHg pressure was tolerated well. Diagnostic laparoscopy demonstrated no injury to bowel, viscera, or mesentery. No evidence of large hiatus hernia was identified. The liver edge was sharp consistent with 2 week low-carb high-protein diet. A 8 mm port was placed along the left upper abdominal wall after exchanging the 5 mm port. A separate 8 mm port was placed along the left lateral abdominal wall. Please note that the ports were placed at least 20 cm away from the target anatomy. Care was taken to check each robotic arms were safely away from collision with the bed or the patient. Next, 12-mm robot stapler port was placed along the right upper quadrant. The camera 8-mm port was maintained along the epigastrium. The patient was repositioned in reverse Trendelenburg position at 21-degrees after lowering the bed. The robot was docked along the left side of the patient. Using a grasper for arm 4, a vessel sealer for arm 3, including grasper for arm 1, the robotic system was docked and primed as described. Instruments were interchanged by the retail assistant manager for stapler loads. The camera was placed at 30- degrees down. I had sat at the console. The pylorus was identified and 6 cm proximally along the greater curvature of the stomach, the short gastrics were mobilized upwards to the angle of His using a vessel sealer. Hemostasis was excellent during this portion of the procedure. Next, the upper pole of the stomach was adherent to the left bipin, which was gently dissected free using atraumatic grasper. I went to the head of the bed and placed 40-Thai blunt bougie into the stomach. The bougie was readjusted by the nurse winding rack operator. Robotic stapler green load 60 mm 1 followed by blue 60 mm x 5 loads were used to create the sleeve. Initial firing was across the antrum of the stomach towards the angle of His. The staple line was linear without corkscrewing. The space from the angularis incisura of the sleeve was approximately 4 cm. I then went to the head of the bed to perform the intraoperative esophagogastroduodenoscopy leak test. The bougie was withdrawn. The upper pole of the stomach was bathed using normal saline solution. The scope was withdrawn with careful inspection along the staple line for which no leaks were found along the entire length. Additionally,the sleeve was completely hemostatic without any encroachment along the angularis incisura. Its topology was a soft "J". No stricture was encountered upon placement of the scope. The GI tract was desufflated. The patient tolerated this portion of the procedure well. The scope was completely withdrawn. The robot was undocked. I then rescrubbed into case, whereby the irrigation fluid was aspirated from the abdominal cavity. Tisseel fibrin sealant was placed along the entire staple length. Once dried the Delfina liver retractor was removed. Attention was now brought to removal of the specimen. The distal end of the sleeve gastrectomy specimen was brought out through the 12 mm port at the left upper quadrant. The specimen was gently removed en total. No contamination had occurred during this process. All instruments and pneumoperitoneum including irrigation fluid was removed from the abdominal cavity. The 12 mm port site was closed using 0-Vicryl and Lawrence Cole and irrigated with diluted hydrogen peroxide. The final incisions were closed using subcuticular interrupted suture of 4-0 Monocryl. Exofin was applied to the skin once the skin had been cleansed. OptiFoam dressing was placed along the stomach extraction site. The sleeve specimen was measured and checked also for leaks which none were found. At the end of the procedure, needle, sponge, and instrument count was verified correct by the surgical garment fitter. [facility]. She had tolerated the procedure well. Intraoperative films and findings were reviewed with the patient's family.
[2023-07-02] MEDS: KETOROLAC 15 MG/ML 1 ML VIAL IVP SCH ×2 (17:43→23:49)
[2023-07-02] MEDS: ALBUTEROL NEBULIZED 2.5 MG/3 ML INHALATION SCH ×2 (17:45→20:39)
[2023-07-02] MEDS: ACETAMINOPHEN IV (For NPO) 1,000 MG in EMPTY BAG 1 BAG IVPB SCH ×2 (18:59→23:48)
[2023-07-02] MEDS: SIMETHICONE 40 MG/0.6 ML DROPS 2,000 MG/30 ML BOTTLE PO SCH ×2 (18:59→23:53)
[2023-07-02] MEDS: HYOSCYAMINE ORAL DROPS 1.875 MG/15 ML BOTTLE PO SCH ×2 (19:00→23:52)
[2023-07-02] MEDS: ONDANSETRON 4 MG/2 ML VIAL IVP SCH ×2 (19:00→23:49)
[2023-07-02] MEDS ORDERED: ceFAZolin 3 GM in SODIUM CHLORIDE 0.9% 100 ML IVPB SCH (19:00)
[2023-07-02] MEDS ORDERED: DEXAMETHASONE SOD PHOSPHATE 10 MG/ML 1 ML VIAL IVP ONE (19:00)
[2023-07-02] MEDS: SYMBICORT 160-4.5 MCG INHALER INHALATION SCH (20:39)
[2023-07-02] MEDS: PANTOPRAZOLE 40 MG/10 ML VIAL IVP SCH (21:36)
[2023-07-02] MEDS ORDERED: ENOXAPARIN 40 MG/0.4 ML SYRINGE SQ SCH (23:15)
[2023-07-02] MEDS: DEXAMETHASONE SOD PHOSPHATE 4 MG/ML 1 ML VIAL IVP SCH (23:49)
[2023-07-02] MEDS: 0.9% NACL WITH KCL 20 MEQ/L 1,000 ML IV SCH (23:49)
[2023-07-03] MEDS: 0.9% NACL WITH KCL 20 MEQ/L 1,000 ML IV SCH (03:09)
[2023-07-03] MEDS: DEXAMETHASONE SOD PHOSPHATE 4 MG/ML 1 ML VIAL IVP SCH ×2 (05:57→13:01)
[2023-07-03] MEDS: HYOSCYAMINE ORAL DROPS 1.875 MG/15 ML BOTTLE PO SCH ×2 (05:57→13:03)
[2023-07-03] MEDS: ONDANSETRON 4 MG/2 ML VIAL IVP SCH ×2 (05:57→13:03)
[2023-07-03] MEDS: KETOROLAC 15 MG/ML 1 ML VIAL IVP SCH ×2 (05:58→13:02)
[2023-07-03] MEDS: ACETAMINOPHEN IV (For NPO) 1,000 MG in EMPTY BAG 1 BAG IVPB SCH ×2 (05:58→13:01)
[2023-07-03] MEDS ORDERED: LEVOTHYROXINE 75 MCG TAB PO SCH (06:30)
[2023-07-03] MEDS ORDERED: 0.9% NACL WITH KCL 20 MEQ/L 1,000 ML IV SCH (08:00)
[2023-07-03] MEDS ORDERED: VERAPAMIL SR 180 MG TABLET.ER PO SCH (09:00)
[2023-07-03] MEDS ORDERED: ENOXAPARIN 40 MG/0.4 ML SYRINGE SQ SCH (09:00)
[2023-07-03] MEDS: ALBUTEROL NEBULIZED 2.5 MG/3 ML INHALATION SCH ×3 (09:54→16:29)
[2023-07-03] MEDS: SYMBICORT 160-4.5 MCG INHALER INHALATION SCH (09:54)
[2023-07-03] MEDS: PANTOPRAZOLE 40 MG/10 ML VIAL IVP SCH (10:04)
[2023-07-03] MEDS: SIMETHICONE 40 MG/0.6 ML DROPS 2,000 MG/30 ML BOTTLE PO SCH ×2 (10:05→13:04)
[2023-07-03] MEDS: LACTATED RINGERS 1,000 ML IV SCH (10:15)
[2023-07-03 11:06] VITALS: BMI 53.2
[2023-07-03 11:17] LABS: Basophils # (A) 0.02 X 10*3/uL (0.00-0.10); Basophils % (A) 0.1 %; Eosinophils # (A) 0 X 10*3/uL (0.04-0.35); Eosinophils % (A) 0 %; HCT 43.5 % (37.2-46.3); HGB 14.1 g/dL (12.0-15.0); Lymphocytes # (A) 1.29 X 10*3/uL (0.90-5.00); MCH 31.4 pg (27.0-32.0); MCHC 32.4 g/dL (32.0-37.0); MCV 96.9 FL (80.0-97.0); Mean Platelet Volume 9.8 FL (9.5-12.2); Monocytes # (A) 0.62 X 10*3/uL (0.20-1.00); Monocytes % (A) 4.3 %; NRBC Per 100 WBC 0 X 10*3/uL (0.00-0.01); Neutrophils # (A) 12.33 X 10*3/uL (1.80-7.70); Neutrophils % (A) 86.1 %; Platelet Count 281 X 10*3/uL (140-440); RBC 4.49 X 10*6/uL (4.10-5.20); RDW 14.2 % (11.5-14.5); WBC 14.33 X 10*3/uL (4.50-10.00)
[2023-07-03 11:27] LABS: Calcium 9.5 mg/dL (8.7-10.3); Carbon Dioxide 22.8 mmol/L (21.6-31.8); Chloride 104 mmol/L (96-109); Magnesium 2.1 mg/dL (1.5-2.4); Phosphorus 2.3 mg/dL (2.4-5.1); Potassium 4.8 mmol/L (3.5-5.5); Sodium 139 mmol/L (135-145)
--- NOTE | 2023-07-03 12:44 | FL ---
EXAMINATION TYPE: FL UGI DATE OF EXAM: 07/03/2023 COMPARISON: None HISTORY: Status post gastric sleeve TECHNIQUE: A single contrast Limited UGI study is performed. FINDINGS: Contrast passes from the distal esophagus through the gastric sleeve with mild hesitancy. N o extravasation of contrast is evident. No free air is noted during this examination. Overhead radiographs were obtained which are unremarkable. IMPRESSION: 1. Normal post gastric sleeve without obstruction or hesitancy. No extravasation.
--- NOTE | 2023-07-03 15:36 | P.DS ---
Providers Date of admission: 07/02/23 09:10 Expected date of discharge: 07/03/23 Attending physician: Bren Hawthorne Primary care physician: Shanika [facility] Course: Discharge diagnosis 1. Morbid obesity due to excess calories 2. Body mass index of 59.5 3. Osteoarthritis of the knees. 4. Osteoarthritis of the lower back. 5. Hypertensive heart disease. 6. Gastroesophageal reflux disease 7. Hyperlipidemia 8. Obstructive sleep apnea 9. Hypothyroidism. 10. Rheumatoid arthritis 11. Depressive disorder. 12. Chronic obstructive pulmonary disease. 13. Anxiety disorder 14. Depressive disorder 15. Recurrent incisional hernia 16. Vitamin A deficiency 17. Leukocytosis likely reactive from [facility] course Amelia Bonilla is a 58-year-old female who comes with lifelong morbid obesity. She is status post robotic-assisted laparoscopic sleeve gastrectomy. He patient tolerated surgery well. Upper GI shows no evidence of leak or obstruction. She is tolerating diet. She has been up and ambulating. Her pain is controlled. She is afebrile. She is stable for discharge. Physician [employer] Teacher note has been reviewed by physician. Signing provider agrees with the documented findings, assessment, and plan of care. Patient Condition at Discharge: Stable Plan - Discharge Summary Discharge Rx Participant: Yes New Discharge Prescriptions: New bisacodyL [Dulcolax] 5 mg PO DAILY PRN #10 tab PRN Reason: Constipation Simethicone 40 mg/0.6 ml Drops [Mylicon Drops] 40 mg PO PCHS PRN #30 ml PRN Reason: Gas Omeprazole [PriLOSEC] 40 mg PO DAILY #30 cap Acetaminophen Tab [Tylenol] 1,000 mg PO Q6HR PRN #30 tablet PRN Reason: Pain Ondansetron Odt [Zofran Odt] 4 mg PO Q8HR PRN #9 tab PRN Reason: Nausea Continue Cyclobenzaprine [Flexeril] 10 mg PO BID PRN PRN Reason: Pain busPIRone HCL 10 mg PO DIRECTED PRN PRN Reason: Anxiety lisinopriL [Prinivil] 20 mg PO QAM Sertraline [Zoloft] 200 mg PO QAM Levothyroxine Sodium [Synthroid] 75 mcg PO QAM metHOTREXate sodium 12.5 mg PO MARTINEZ Budesonide-Formot 160-4.5 Mcg [Symbicort 160-4.5 Mcg Inhaler] 2 puff INHALATION BID Verapamil HCl [Verapamil ER] 180 mg PO QAM Discontinued Ibuprofen [Motrin] 800 mg PO Q8H PRN PRN Reason: Pain Atorvastatin [Lipitor] 20 mg PO QAM Discharge Medication List Cyclobenzaprine [Flexeril] 10 mg PO BID PRN 12/27/22 [History] Levothyroxine Sodium [Synthroid] 75 mcg PO QAM 12/27/22 [History] busPIRone HCL 10 mg PO DIRECTED PRN 12/27/22 [History] lisinopriL [Prinivil] 20 mg PO QAM 12/27/22 [History] metHOTREXate sodium 12.5 mg PO MARTINEZ 12/27/22 [History] Budesonide-Formot 160-4.5 Mcg [Symbicort 160-4.5 Mcg Inhaler] 2 puff INHALATION BID 02/01/23 [History] Sertraline [Zoloft] 200 mg PO QAM 02/01/23 [History] Verapamil HCl [Verapamil ER] 180 mg PO QAM 06/27/23 [History] Acetaminophen Tab [Tylenol] 1,000 mg PO Q6HR PRN #30 tablet 07/03/23 [Rx] Omeprazole [PriLOSEC] 40 mg PO DAILY #30 cap 07/03/23 [Rx] Ondansetron Odt [Zofran Odt] 4 mg PO Q8HR PRN #9 tab 07/03/23 [Rx] Simethicone 40 mg/0.6 ml Drops [Mylicon Drops] 40 mg PO PCHS PRN #30 ml 07/03/23 [Rx] bisacodyL [Dulcolax] 5 mg PO DAILY PRN #10 tab 07/03/23 [Rx] Follow up [facility]ment(s[facility] [facility] [place] [facility] [place] [facility] Patient Instructions/Handouts: Nutrition after Bariatric Surgery (DC), Laparoscopic Sleeve Gastrectomy (DC) Activity/Diet/Wound Care/Special Instructions: Liquid diet only for 2 weeks No lifting over 4 pounds in 4 weeks May Shower. No soaking in bath tubs for 2 weeks Please notify your surgeon if you develop nausea and vomiting including new onset of abdominal pain. Continue to use incentive spirometry to prevent pneumonias. Please continue to ambulate at home to prevent blood clots in legs. Follow-up at the bariatric center. May shower. Dressings to be discontinued by surgeon in the office. Drink 64 oz of fluid daily. Start protein shakes on . Notify bariatric center for temp over 101.0, increased pain, drainage from incisions. No straws or carbonated beverages. Liquid diet only. Sugar content should be less than 6 g to avoid dumping syndrome. Take MOM for constipation. CRUSH, OPEN, OR CUT TABLETS LARGER THAN A SIZE OF A TIC TAC Hold on taking lipitor due to increase bleeding risk Discharge Disposition: HOME SELF-CARE
[2023-07-03 16:31] VITALS: BP 145/76; PULSE 86; RESP 17; TEMP 98.1
[2023-07-04] MEDS ORDERED: bisacodyL 5 MG TABLET.DR PO PRN (08:00)
== END 2023-07-03 17:52 | disposition home or self-care (01) | DRG 403 ==
LOC: 2ORMAIN 09:10 → 4SSUR 17:28
PROVIDERS: ADMIT Surgery Plastic and Reconstructive Surgery; ATTEND Surgery Plastic and Reconstructive Surgery
PROC: 0DJ08ZZ Inspection of Upper Intestinal Tract, Via Natural or Artificial Opening Endoscopic (ICD-10-PCS; 2023-07-02)
PROC: 8E0W4CZ Robotic Assisted Procedure of Trunk Region, Percutaneous Endoscopic Approach (ICD-10-PCS; 2023-07-02)
PROC: 0DB64Z3 Excision of Stomach, Percutaneous Endoscopic Approach, Vertical (ICD-10-PCS; principal; 2023-07-02 10:25)
DX: E66.01 Morbid (severe) obesity due to excess calories (principal); Z88.5 Allergy status to narcotic agent; Z68.43 Body mass index [BMI] 50.0-59.9, adult; D72.829 Elevated white blood cell count, unspecified; T38.0X5A Adverse effect of glucocorticoids and synthetic analogues, initial encounter; E03.9 Hypothyroidism, unspecified; E50.9 Vitamin A deficiency, unspecified; K43.2 Incisional hernia without obstruction or gangrene; E78.5 Hyperlipidemia, unspecified; F32.A Depression, unspecified; F41.9 Anxiety disorder, unspecified; G47.33 Obstructive sleep apnea (adult) (pediatric); I48.91 Unspecified atrial fibrillation; J44.9 Chronic obstructive pulmonary disease, unspecified; X58.XXXA Exposure to other specified factors, initial encounter; M06.9 Rheumatoid arthritis, unspecified; K21.9 Gastro-esophageal reflux disease without esophagitis; I10 Essential (primary) hypertension; M17.0 Bilateral primary osteoarthritis of knee; M47.899 Other spondylosis, site unspecified; Z79.51 Long term (current) use of inhaled steroids; Z79.890 Hormone replacement therapy; Z87.891 Personal history of nicotine dependence
CPT/HCPCS: 74240; 80051; 82310; 82565; 83735; 84100; 84520; 85025; 88307; 94640

== ENCOUNTER → 2023-07-11 | Outpatient (CLI) | payer OTHER ==
[2023-07-11 15:23] VITALS: BP 150/84; PULSE 88; TEMP 98.1; BMI 55.6
--- NOTE | 2023-07-11 16:02 | P.BASOAP ---
Subjective Progress Note Date: 07/11/23 DATE OF SERVICE: 07/11/23 CHIEF COMPLAINT: Status post sleeve gastrectomy HISTORY OF PRESENT ILLNESS: Amelia Bonilla is a 58-year-old female status post sleeve gastrectomy 07/02/2023. She is 1 week out. She has lost 20 pounds in 2 weeks. She is having bowel movements. She denies gastroesophageal reflux disease. Pain is well-controlled. She has pre-existing incisional ventral hernia. At height of 5 feet 3.5 inches, her ideal body weight is 140 pounds. She comes in 319 pounds from 338 pounds. She lost 18 pounds in 1 week. Her body mass index was 55.6. Her highest weight is 340 pounds, BMI 59.5. Lifetime weight loss 21 pounds. Lifetime percent excess weight loss 11%. She is [address] [facility]. PHYSICAL EXAM: VITAL SIGNS: Height 5 foot 3.5 inches, weight 319 pounds. BMI 55.6 Vital Signs Temp 98.1 F 07/11/23 15:18 Pulse 88 07/11/23 15:18 Resp BP 150/84 07/11/23 15:18 Pulse Ox FiO2 GENERAL: Well-developed in no acute distress. HEENT: No scleral icterus. Extraocular movements grossly intact. Hears conversational speech. No nasal drainage. NECK: Supple without lymphadenopathy. CHEST: Nonlabored respirations with equal bilateral excursions. CARDIOVASCULAR: Regular rate and regular rhythm. Distal 2+ pulses. ABDOMEN: Obese, incisions clean dry and intact. Pre-existing large abdominal wall hernia. MUSCULOSKELETAL: No clubbing, cyanosis. NEURO: No focal or lateralizing signs. Cranial nerves 2 through 12 grossly within normal limits. PSYCH: Appropriate affect. Alert and oriented to person, place and time. SKIN: Good skin turgor. Well perfused. ASSESSMENT: 1. Morbid obesity due to excess calories 2. Body mass index of 59.5 to 55.6 3. Osteoarthritis of the knees. 4. Osteoarthritis of the lower back. 5. Hypertensive heart disease. 6. Gastroesophageal reflux disease 7. Hyperlipidemia 8. Obstructive sleep apnea 9. Hypothyroidism. 10. Rheumatoid arthritis 11. Depressive disorder. 12. Chronic obstructive pulmonary disease. 13. Anxiety disorder 14. Depressive disorder 15. Recurrent incisional hernia 16. Vitamin A deficiency PLAN: 1. Recommend increase protein intake of 75 g daily. 2. Recommend 64 ounces daily 3. Follow-up one month post Objective - Vital Signs Vital signs: Vital Signs Temp 98.1 F 07/11/23 15:18 Pulse 88 07/11/23 15:18 Resp BP 150/84 07/11/23 15:18 Pulse Ox FiO2 Intake & Output 07/10/23 07/11/23 07/11/23 18:59 06:59 18:59 Weight 144.696 kg Assessment/Plan Plan: Date: 07/11/23 Initial Weight: Initial BMI: Current Weight: 144.696 kg Current BMI: 55.6 Type of Surgery: Total Volume in Band: Previous Volume: Volume Removed: Volume Added: Band Size:
== END ==
LOC: BARWHC3 14:58
PROVIDERS: ATTEND Surgery Plastic and Reconstructive Surgery
DX: E66.01 Morbid (severe) obesity due to excess calories (principal); M17.0 Bilateral primary osteoarthritis of knee; M47.816 Spondylosis without myelopathy or radiculopathy, lumbar region; I11.0 Hypertensive heart disease with heart failure; K21.9 Gastro-esophageal reflux disease without esophagitis; E78.5 Hyperlipidemia, unspecified; G47.33 Obstructive sleep apnea (adult) (pediatric); E03.9 Hypothyroidism, unspecified; M06.9 Rheumatoid arthritis, unspecified; F32.A Depression, unspecified; J44.9 Chronic obstructive pulmonary disease, unspecified; F41.9 Anxiety disorder, unspecified; E50.9 Vitamin A deficiency, unspecified; K43.2 Incisional hernia without obstruction or gangrene; Z68.43 Body mass index [BMI] 50.0-59.9, adult; Z71.3 Dietary counseling and surveillance; Z88.5 Allergy status to narcotic agent; Z79.899 Other long term (current) drug therapy
CPT/HCPCS: 97802; G0463; 99211

== ENCOUNTER → 2023-08-01 | Outpatient (CLI) | payer OTHER ==
[2023-08-01 15:03] VITALS: BP 115/82; PULSE 92; TEMP 98; BMI 52.4
--- NOTE | 2023-08-01 15:13 | P.BASOAP ---
Subjective Progress Note Date: 08/01/23 DATE OF SERVICE: 08/01/23 CHIEF COMPLAINT: Status post sleeve gastrectomy HISTORY OF PRESENT ILLNESS: Amelia Bonilla is a 58-year-old female status post sleeve gastrectomy 07/02/2023. She is 1 month out. She has new gastroesophageal reflux disease after surgery. She has her gallbladder. She is taking omeprazole for reflux. She has lost 30 pounds in 1 month. She has citrus exacerbates with her symptoms. She is not using yogurt that gives her diarrhea. She is pooping. She has large ventral hernia. She is getting 60 grams of protein daily. At height of 5 feet 3.5 inches, her ideal body weight is 140 pounds. She comes in 301 pounds from 319 pounds, 3 weeks ago. She lost 18 pounds in 3 weeks. Her body mass index was 52.5. Her highest weight is 340 pounds, BMI 59.5. Lifetime weight loss 39 pounds. Lifetime percent excess weight loss 20%. She is 161 pounds overweight. PHYSICAL EXAM: VITAL SIGNS: Height 5 foot 3.5 inches, weight 301 pounds. BMI 52.5 Vital Signs Temp 98 F 08/01/23 14:49 Pulse 92 08/01/23 14:49 Resp BP 115/82 08/01/23 14:56 Pulse Ox FiO2 GENERAL: Well-developed in no acute distress. HEENT: No scleral icterus. Extraocular movements grossly intact. Hears conversational speech. No nasal drainage. NECK: Supple without lymphadenopathy. CHEST: Nonlabored respirations with equal bilateral excursions. CARDIOVASCULAR: Regular rate and regular rhythm. Distal 2+ pulses. ABDOMEN: Obese, incisions clean dry and intact. Pre-existing large abdominal wall hernia. MUSCULOSKELETAL: No clubbing, cyanosis. NEURO: No focal or lateralizing signs. Cranial nerves 2 through 12 grossly within normal limits. PSYCH: Appropriate affect. Alert and oriented to person, place and time. SKIN: Good skin turgor. Well perfused. ASSESSMENT: 1. Morbid obesity due to excess calories 2. Body mass index of 59.5 to 52.5 3. Osteoarthritis of the knees. 4. Osteoarthritis of the lower back. 5. Hypertensive heart disease. 6. Gastroesophageal reflux disease 7. Hyperlipidemia 8. Obstructive sleep apnea 9. Hypothyroidism. 10. Rheumatoid arthritis 11. Depressive disorder. 12. Chronic obstructive pulmonary disease. 13. Anxiety disorder 14. Depressive disorder 15. Recurrent incisional hernia 16. Vitamin A deficiency 17. Status post sleeve gastrectomy PLAN: 1. Continue omeprazole 40 mg daily for gastroesophageal reflux disease. 2. Recommend protein intake 60 grams daily. 3. Recommend bariatric labs 4. Follow-up 3 months postop Objective - Vital Signs Vital signs: Vital Signs Temp 98 F 08/01/23 14:49 Pulse 92 08/01/23 14:49 Resp BP 115/82 08/01/23 14:56 Pulse Ox FiO2 Intake & Output 07/31/23 08/01/23 08/01/23 18:59 06:59 18:59 Weight 136.531 kg Assessment/Plan Plan: Date: 08/01/23 Initial Weight: Initial BMI: Current Weight: 136.531 kg Current BMI: 52.4 Type of Surgery: Total Volume in Band: Previous Volume: Volume Removed: Volume Added: Band Size:
== END ==
LOC: BARWHC3 13:57
PROVIDERS: ATTEND Surgery Plastic and Reconstructive Surgery
DX: K21.9 Gastro-esophageal reflux disease without esophagitis (principal); E66.01 Morbid (severe) obesity due to excess calories; M17.0 Bilateral primary osteoarthritis of knee; M47.816 Spondylosis without myelopathy or radiculopathy, lumbar region; I11.9 Hypertensive heart disease without heart failure; E78.5 Hyperlipidemia, unspecified; G47.33 Obstructive sleep apnea (adult) (pediatric); E03.9 Hypothyroidism, unspecified; M06.9 Rheumatoid arthritis, unspecified; F32.A Depression, unspecified; J44.9 Chronic obstructive pulmonary disease, unspecified; F41.9 Anxiety disorder, unspecified; E50.9 Vitamin A deficiency, unspecified; K43.2 Incisional hernia without obstruction or gangrene; Z98.84 Bariatric surgery status; Z68.43 Body mass index [BMI] 50.0-59.9, adult; Z71.3 Dietary counseling and surveillance; Z88.5 Allergy status to narcotic agent; Z79.890 Hormone replacement therapy; Z79.899 Other long term (current) drug therapy
CPT/HCPCS: 97803; G0463; 99211

== ENCOUNTER → 2023-09-19 | Outpatient (CLI) | payer OTHER ==
[2023-09-19 10:33] LABS: Partial Thromboplastin Time 26.2 sec (22.0-30.0); Prothrombin Time 10.9 sec (10.0-12.5)
[2023-09-19 15:50] LABS: HGB 14.9 g/dL (12.0-15.0); MCH 30.3 pg (27.0-32.0); MCHC 31.7 g/dL (32.0-37.0); MCV 95.7 FL (80.0-97.0); Mean Platelet Volume 11.1 FL (9.5-12.2); NRBC Per 100 WBC 0 X 10*3/uL (0.00-0.01); Platelet Count 256 X 10*3/uL (140-440); RBC 4.91 X 10*6/uL (4.10-5.20); RDW 13.7 % (11.5-14.5); WBC 7.57 X 10*3/uL (4.50-10.00)
[2023-09-19 16:34] LABS: % Iron Saturation 30.82 (12.00-45.00); ALT 18 U/L (8-44); AST 17 U/L (13-35); Albumin 3.9 g/dL (3.8-4.9); Albumin/Globulin Ratio 1.44 Ratio (1.60-3.17); Alkaline Phosphatase 107 U/L (41-126); BUN/Creat Ratio 18.86 Ratio (12.00-20.00); Blood Urea Nitrogen 13.2 mg/dL (9.0-27.0); Calcium 9.5 mg/dL (8.7-10.3); Carbon Dioxide 23.5 mmol/L (21.6-31.8); Chloride 107 mmol/L (96-109); Chol/HDL Ratio 3.16 Ratio; Globulin 2.7 g/dL (1.6-3.3); Glucose 81 mg/dL (70-110); Iron 98 UG/DL (50-170); LDL Cholesterol,Calculated 79.9 mg/dL (0.0-131.0); Magnesium 1.9 mg/dL (1.5-2.4); Phosphorus 3.4 mg/dL (2.4-5.1); Potassium 4.1 mmol/L (3.5-5.5); Sodium 143 mmol/L (135-145); Total Bilirubin 0.3 mg/dL (0.3-1.2); Total Iron Binding Capacity 318 UG/DL (228-460); Total Protein 6.6 g/dL (6.2-8.2)
[2023-09-20 12:27] LABS: Zinc, Serum 85 ug/dL (60-130)
[2023-09-21 07:22] LABS: Vit B1(Thiamine) 46 ug/L (38-122)
[2023-09-21 07:56] LABS: Vitamin A 43 ug/dL (38-106)
== END | disposition home or self-care (01) ==
LOC: LABWHC1 08:35
PROVIDERS: ATTEND Surgery Plastic and Reconstructive Surgery
DX: E66.01 Morbid (severe) obesity due to excess calories (principal); D50.8 Other iron deficiency anemias; K91.2 Postsurgical malabsorption, not elsewhere classified; E44.0 Moderate protein-calorie malnutrition; E44.1 Mild protein-calorie malnutrition; E45 Retarded development following protein-calorie malnutrition; E55.9 Vitamin D deficiency, unspecified; K74.1 Hepatic sclerosis; N19 Unspecified kidney failure; T56.894A Toxic effect of other metals, undetermined, initial encounter; K50.90 Crohn's disease, unspecified, without complications
CPT/HCPCS: 36415; 80053; 80061; 82306; 82525; 82607; 82728; 82746; 83036; 83540; 83550; 83735; 83970; 84100; 84134; 84255; 84425; 84443; 84590; 84630; 85027; 85610; 85730

== ENCOUNTER → 2023-10-31 | Outpatient (CLI) | payer OTHER ==
[2023-10-31 15:21] VITALS: BP 156/92; PULSE 86; TEMP 98.2; BMI 48.9
--- NOTE | 2023-10-31 15:32 | P.BASOAP ---
Subjective Progress Note Date: 10/31/23 She lost 60 pounds. She is not off lipitor. NO abdominal pain. She wants to lose another 80 pounds. Her protein intake is less than 60 grams. She is doing chair yoga. Labs. No stuck. She has acid reflux. Pepcid is helping. Reflux since surgery. Thyroid adjustment. Labs reviewed. Vitamin D 10,000 Objective - Vital Signs Vital signs: Vital Signs Temp 98.2 F 10/31/23 14:57 Pulse 86 10/31/23 14:57 Resp BP 156/92 10/31/23 14:57 Pulse Ox FiO2 Intake & Output 10/30/23 10/31/23 10/31/23 18:59 06:59 18:59 Weight 127.187 kg Assessment/Plan Plan: Date: 10/31/23 Initial Weight: Initial BMI: Current Weight: 127.187 kg Current BMI: 48.9 Type of Surgery: Total Volume in Band: Previous Volume: Volume Removed: Volume Added: Band Size:
== END ==
LOC: BARWHC3 14:37
PROVIDERS: ATTEND Surgery Plastic and Reconstructive Surgery
DX: E66.01 Morbid (severe) obesity due to excess calories (principal); Z53.9 Procedure and treatment not carried out, unspecified reason
CPT/HCPCS: 99211

== ENCOUNTER → 2023-11-07 | Outpatient (CLI) | payer OTHER ==
[2023-11-07 09:53] LABS: INR 0.9 (<1.2); Partial Thromboplastin Time 27.4 sec (22.0-30.0); Prothrombin Time 10.4 sec (10.0-12.5)
[2023-11-07 15:43] LABS: HGB 14.7 g/dL (12.0-15.0); MCH 31.3 pg (27.0-32.0); MCHC 32.7 g/dL (32.0-37.0); MCV 95.7 FL (80.0-97.0); Mean Platelet Volume 10.3 FL (9.5-12.2); NRBC Per 100 WBC 0 X 10*3/uL (0.00-0.01); Platelet Count 306 X 10*3/uL (140-440); RDW 15.1 % (11.5-14.5); WBC 8.25 X 10*3/uL (4.50-10.00)
[2023-11-07 16:29] LABS: % Iron Saturation 16.47 (12.00-45.00); ALT 20 U/L (8-44); AST 19 U/L (13-35); Albumin 4.1 g/dL (3.8-4.9); Albumin/Globulin Ratio 1.37 Ratio (1.60-3.17); Alkaline Phosphatase 113 U/L (41-126); BUN/Creat Ratio 17.43 Ratio (12.00-20.00); Blood Urea Nitrogen 12.2 mg/dL (9.0-27.0); Calcium 9.6 mg/dL (8.7-10.3); Carbon Dioxide 23.3 mmol/L (21.6-31.8); Chloride 106 mmol/L (96-109); Chol/HDL Ratio 4.91 Ratio; Glucose 81 mg/dL (70-110); Iron 57 UG/DL (50-170); LDL Cholesterol,Calculated 162.9 mg/dL (0.0-131.0); Magnesium 2.1 mg/dL (1.5-2.4); Phosphorus 3.5 mg/dL (2.4-5.1); Sodium 143 mmol/L (135-145); Total Bilirubin 0.2 mg/dL (0.3-1.2); Total Iron Binding Capacity 346 UG/DL (228-460); Total Protein 7.1 g/dL (6.2-8.2)
[2023-11-08 12:51] LABS: Zinc, Serum 89 ug/dL (60-130)
[2023-11-08 14:20] LABS: Prealbumin 20.1 mg/dL (18.0-42.0)
[2023-11-09 07:27] LABS: Vitamin A 51 ug/dL (38-106)
== END | disposition home or self-care (01) ==
LOC: LABWHC1 08:31
PROVIDERS: ATTEND Surgery Plastic and Reconstructive Surgery
DX: E66.01 Morbid (severe) obesity due to excess calories (principal); E89.1 Postprocedural hypoinsulinemia; D50.8 Other iron deficiency anemias; K91.2 Postsurgical malabsorption, not elsewhere classified; E44.0 Moderate protein-calorie malnutrition; E44.1 Mild protein-calorie malnutrition; E45 Retarded development following protein-calorie malnutrition; E55.9 Vitamin D deficiency, unspecified; E46 Unspecified protein-calorie malnutrition; K74.1 Hepatic sclerosis; N19 Unspecified kidney failure; T56.894A Toxic effect of other metals, undetermined, initial encounter; K50.90 Crohn's disease, unspecified, without complications
CPT/HCPCS: 36415; 80053; 80061; 82306; 82525; 82607; 82728; 82746; 83036; 83540; 83550; 83735; 83970; 84100; 84134; 84255; 84425; 84443; 84590; 84630; 85027; 85610; 85730

== ENCOUNTER → 2024-03-26 | Outpatient (CLI) | payer OTHER ==
[2024-03-26 10:14] LABS: INR 0.9 (<1.2); Prothrombin Time 10.4 sec (10.0-12.5)
[2024-03-26 15:29] LABS: HCT 42.2 % (37.2-46.3); HGB 13.5 g/dL (12.0-15.0); MCH 32.1 pg (27.0-32.0); MCV 100.2 FL (80.0-97.0); Mean Platelet Volume 10.5 FL (9.5-12.2); NRBC Per 100 WBC 0 X 10*3/uL (0.00-0.01); Platelet Count 283 X 10*3/uL (140-440); RBC 4.21 X 10*6/uL (4.10-5.20); RDW 14.2 % (11.5-14.5); WBC 7.14 X 10*3/uL (4.50-10.00)
[2024-03-26 21:40] LABS: % Iron Saturation 20.15 (12.00-45.00); ALT 18 U/L (8-44); AST 16 U/L (13-35); Albumin/Globulin Ratio 1.74 Ratio (1.60-3.17); Alkaline Phosphatase 114 U/L (41-126); BUN/Creat Ratio 17.71 Ratio (12.00-20.00); Blood Urea Nitrogen 12.4 mg/dL (9.0-27.0); Calcium 9.3 mg/dL (8.7-10.3); Carbon Dioxide 23.1 mmol/L (21.6-31.8); Chloride 110 mmol/L (96-109); Chol/HDL Ratio 3.06 Ratio; Globulin 2.3 g/dL (1.6-3.3); Glucose 88 mg/dL (70-110); Iron 55 UG/DL (50-170); LDL Cholesterol,Calculated 89.8 mg/dL (0.0-131.0); Magnesium 1.9 mg/dL (1.5-2.4); Phosphorus 3.4 mg/dL (2.4-5.1); Potassium 4.7 mmol/L (3.5-5.5); Sodium 144 mmol/L (135-145); Total Bilirubin 0.2 mg/dL (0.3-1.2); Total Iron Binding Capacity 273 UG/DL (228-460); Total Protein 6.3 g/dL (6.2-8.2); VLDL Calculation 19.86 mg/dL (5.00-40.00)
[2024-03-27 11:25] LABS: Zinc, Serum 71 ug/dL (60-130)
[2024-03-28 06:15] LABS: Vitamin A 42 ug/dL (38-106)
[2024-03-31 12:15] LABS: Vit B1(Thiamine) 73 ug/L (38-122)
[2024-04-03 22:41] LABS: Selenium 83 mcg/L (63-160)
== END | disposition home or self-care (01) ==
LOC: LABPAT 08:26
PROVIDERS: ATTEND Surgery Plastic and Reconstructive Surgery
DX: E66.01 Morbid (severe) obesity due to excess calories
CPT/HCPCS: 36415; 80053; 80061; 82306; 82525; 82607; 82728; 82746; 83036; 83540; 83550; 83735; 83970; 84100; 84134; 84255; 84425; 84443; 84590; 84630; 85027; 85610; 85730

== ENCOUNTER → 2024-04-09 | Outpatient (CLI) | payer OTHER ==
[2024-04-09 16:19] VITALS: BP 130/79; PULSE 69; RESP 16; TEMP 98.1; BMI 44.2
--- NOTE | 2024-04-09 16:51 | P.BASOAP ---
Subjective Progress Note Date: 04/09/24 No worse back pain. Abdominal wall reconstruction. Lost 80 + pounds. Pannus [address] Jerry for skin. 30 pounds skin, grade 4 panniculosis. Loss of domain. CT scan. Goal 80. Stairs 10/day. Build lungs up. Jun 2024. Target 24 pounds weight loss. Objective - Vital Signs Vital signs: Vital Signs Temp 98.1 F 04/09/24 16:11 Pulse 69 04/09/24 16:11 Resp 16 04/09/24 16:11 BP 130/79 04/09/24 16:11 Pulse Ox FiO2 Intake & Output 04/08/24 04/09/24 04/09/24 18:59 06:59 18:59 Weight 115.212 kg Assessment/Plan Plan: Date: 04/09/24 Initial Weight: Initial BMI: Current Weight: 115.212 kg Current BMI: 44.2 Type of Surgery: Total Volume in Band: Previous Volume: Volume Removed: Volume Added: Band Size:
== END | disposition home or self-care (01) ==
LOC: BARWHC3 14:39
PROVIDERS: ATTEND Surgery Plastic and Reconstructive Surgery
DX: E66.01 Morbid (severe) obesity due to excess calories (principal)
CPT/HCPCS: 99211

== ENCOUNTER → 2024-04-16 | Outpatient (CLI) | payer OTHER ==
--- NOTE | 2024-04-16 17:57 | US ---
EXAMINATION TYPE: US thyroid st tissue head/neck DATE OF EXAM: 04/16/2024 COMPARISON: US CLINICAL INDICATION: Female, 58 years old with history of E03.9 HYPOTHYROIDISM; Hypothyroid, F/U GLAND SIZE: Right Lobe: 3.8 x 1.6 x 1.4 cm Overall Parenchyma: heterogeneous Left Lobe: 4.2 x 1.7 x 1.4 cm Overall Parenchyma: heterogeneous Isthmus Thickness: 0.8 cm NODULES RIGHT: # of nodules measured on right: 0 LEFT: # of nodules measured on left: 2 1. 0.7 X 0.5 x 0.4 cm, mid lateral, solid or almost completely solid, isoechoic nodule, which is wi reagan than tall, with ill-defined margins, without echogenic foci. Prior size: Not visualized on prior 2. 0.4 X 0.4 x 0.3 cm, lower, medial, solid or almost completely solid, hyperechoic nodule, which is wider than tall, with ill-defined margins, without echogenic foci. Prior size: 0.5 x 0.5 x 0.3 cm ISTHMUS: # of nodules measured in the isthmus: 0 Bilateral neck scanned, no evidence of lymphadenopathy. Lobulated, heterogeneous thyroid with 2 sub- centimeter nodules left side. IMPRESSION: Nonspecific subcentimeter thyroid nodularity. 2017 ACR TI-RADS LEVEL: *Highest TI-RADS level nodule reported [facility], , 04/16/2024 5:54 PM
== END | disposition home or self-care (01) ==
LOC: RADUSWWP 14:26
PROVIDERS: ATTEND Family Medicine
DX: E03.9 Hypothyroidism, unspecified
CPT/HCPCS: 76536

== ENCOUNTER → 2025-02-11 | Outpatient (CLI) | payer OTHER ==
[2025-02-11 13:08] VITALS: BP 150/89; PULSE 97; RESP 16; TEMP 98.3; BMI 43.2
--- NOTE | 2025-02-11 13:26 | P.BASOAP ---
Subjective Progress Note Date: 02/11/25 She reports not eating. Labs are doing okay. Thyroid is okay. She wants 10 more pound weight loss. She is drinking is over 80 oz daily and she is getting 80 oz. Plan for after Apr 18. 1 month follow-up. She is losing 10 pounds in 1 month. Objective - Vital Signs Vital signs: Vital Signs Temp 98.3 F 02/11/25 13:06 Pulse 97 02/11/25 13:06 Resp 16 02/11/25 13:06 BP 150/89 02/11/25 13:06 Pulse Ox FiO2 Intake & Output 02/10/25 02/11/25 02/11/25 18:59 06:59 18:59 Weight 112.491 kg Assessment/Plan Plan: Date: 02/11/25 Initial Weight: 153.484 kg Initial BMI: 59.0 Current Weight: 112.491 kg Current BMI: 43.2 Type of Surgery: Vertical Sleeve Gastrectomy Total Volume in Band: Previous Volume: Volume Removed: Volume Added: Band Size:
== END ==
LOC: BARWHC3 12:50
PROVIDERS: ATTEND Surgery Plastic and Reconstructive Surgery
DX: E66.01 Morbid (severe) obesity due to excess calories (principal); Z68.41 Body mass index [BMI] 40.0-44.9, adult; Z88.5 Allergy status to narcotic agent
CPT/HCPCS: 99211